=== PATIENT | male | born 1960 | race Caucasian/White ===

== ENCOUNTER → 2018-04-11 | Outpatient (CLI) | payer OTHER ==
--- NOTE | 2018-04-11 11:34 | REP ---
Clinical: Left testicular pain. Technique: Real time keller scale and color Doppler evaluation using linear high frequency transducer. Findings: The bilateral testicles and epididymi are relatively normal in contour, size, echogenicity and vascularity. There is no evidence for torsion, mass lesion or infectious/inflammatory process. Incidental right epididymal head cysts measure 3 x 2 x 3 mm and 2 x 3 x 2 mm each. No significant hydroceles are identified. Few left intratesticular calcifications are noted. Left varicocele measures 3.5 mm. No hydrocele. Right testicle measures 5.0 x 2.6 x 2.9 cm. Left testicle measures 4.6 x 2.1 x 3.3 cm. Impression: 1. No evidence for significant acute process. 2. Few left intratesticular calcifications are nonspecific. 3. Left varicocele measures 3.5 mm diameter. Electronically Signed by Lee Cedillo MD 04/11/2018 11:26 A
== END ==
LOC: M RAD 10:32
PROVIDERS: ATTEND Physician Assistant
DX: N50.812 Left testicular pain (principal)

== ENCOUNTER → 2018-09-12 | Outpatient (REF) | payer OTHER ==
[2018-09-12 13:39] LABS: BASO % 0.7 % (0.0-1.0); EOS # 0.3 10^3/uL (0.0-0.50); EOS % 4.4 % (0.0-3.0); HEMATOCRIT 45.7 % (42.0-52.0); HEMOGLOBIN 15.5 g/dl (13.5-17.5); LYMPH # 1.5 10^3/uL (1.5-4.5); MEAN CORPUSCULAR HEMOGLOBIN 30.7 pg (27.0-33.0); MEAN CORPUSCULAR HGB CONC 33.9 g/dl (32.0-36.5); MEAN CORPUSCULAR VOLUME 90.5 fl (80.0-96.0); MONO # 0.5 10^3/uL (0.0-0.8); MONO % 9.1 % (0.0-5.0); NEUTROPHILS # 3.6 10^3/uL (1.8-7.7); NEUTROPHILS % 60.6 % (36.0-66.0); PLATELET COUNT, AUTOMATED 183 10^3/uL (150-450); RED BLOOD COUNT 5.05 10^6/uL (4.30-6.10); WHITE BLOOD COUNT 5.9 10^3/uL (4.0-10.0)
[2018-09-12 13:54] LABS: ALT/SGPT 60 U/L (12-78); BILIRUBIN,TOTAL 0.9 MG/DL (0.2-1.0); BLOOD UREA NITROGEN 19 MG/DL (7-18); CARBON DIOXIDE LEVEL 24 MEQ/L (21-32); CHLORIDE LEVEL 110 MEQ/L (98-107); CREATININE FOR GFR 0.95 MG/DL (0.70-1.30); FOLATE 6.8 NG/ML (>5.4); GLOMERULAR FILTRATION RATE > 60.0 (>56); GLUCOSE, FASTING 95 MG/DL (70-100); HEMOGLOBIN A1c 5.8 %; RHEUMATOID FACTOR QUANT < 10.0 IU/ML (<15.0); SODIUM LEVEL 141 MEQ/L (136-145); TOTAL PROTEIN 7.5 GM/DL (6.4-8.2); VITAMIN B12 LEVEL 605 PG/ML (247-911)
[2018-09-12 14:13] LABS: ERYTHROCYTE SEDIMENTATION RATE 3 mm/hr (0-20)
[2018-09-13 10:33] LABS: ALBUMIN 4.63 GM/DL (3.29-5.55); ALBUMIN % 61.7 % (55.8-66.1); ALPHA-1-GLOBULIN % 3.6 % (2.9-4.9); ALPHA-1-GLOBULINS 0.27 GM/DL (0.17-0.41); ALPHA-2-GLOBULINS 0.47 GM/DL (0.42-0.99); ALPHA-2-GLOBULINS % 6.2 % (7.1-11.8); BETA-1-GLOBULINS 0.38 GM/DL (0.28-0.60); BETA-2-GLOBULINS 0.38 GM/DL (0.19-0.55); GAMMA GLOBULIN % 18.5 % (11.1-18.8); GAMMA GLOBULINS 1.39 GM/DL (0.65-1.58)
[2018-09-18 09:13] LABS: ANCA-ATYPICAL <1:20 titer (Neg:<1:20); ANTI DS-DNA AB <1:10 titer (.); ANTINUCLEAR ANTIBODIES DIRECT Negative (Negative); CERULOPLASMIN 16.3 mg/dL (16.0-31.0); COPPER PLASMA 66 ug/dL (72-166); CYTOPLASMIC NEUTROP AB ANCA-C <1:20 titer (Neg:<1:20); LEAD BLOOD ADULT 2 ug/dL (0-4); Lyme Disease IgG/IgM Antibodie <0.91 ISR (0.00-0.90); Lyme Disease IgM Ab Quantitati <0.80 index (0.00-0.79); MERCURY LEVEL None Detected ug/L (0.0-14.9); PERINUCLEAR AB ANCA-P <1:20 titer (Neg:<1:20); SJOGREN'S ANTI SS-A <0.2 AI (0.0-0.9); SJOGREN'S ANTI SS-B <0.2 AI (0.0-0.9); VITAMIN B1 LEVEL WHOLE BLOOD 134.1 nmol/L (66.5-200.0); VITAMIN B6,PYRIDOXAL PHOSPHATE 2.6 ug/L (5.3-46.7); VITAMIN E(ALPHA TOCOPHEROL) 10.3 mg/L (7.0-25.1); VITAMIN E(GAMMA TOCOPHEROL) 3.4 mg/L (0.5-5.5)
[2018-09-18 10:30] LABS: DRVV SCREEN 43.2 SEC
[2018-09-18 10:32] LABS: PTT LUPUS TYPE ANTICOAG SCREEN 1.1 (0-1.2)
== END ==
LOC: M LABNEURO 08:57
PROVIDERS: ATTEND Psychiatry & Neurology Neurology
DX: G90.09 Other idiopathic peripheral autonomic neuropathy (principal)

== ENCOUNTER → 2018-11-05 | Outpatient (CLI) | payer OTHER ==
--- NOTE | 2018-11-06 04:48 | REP ---
Clinical: Splenomegaly. Technique: Real time keller scale ultrasound examination using curved array transducer. Findings: Liver is increased in echogenicity without focal hepatic lesion identified. Pancreas is incompletely evaluated due to interposed bowel gas. The spleen is enlarged and measures 16.4 x 16.8 x 6.0 cm (splenic index equals 1653). Splenic calcifications consistent with prior granulomatous disease. The bilateral kidneys are normal in reniform shape without hydronephrosis. Right kidney measures 11.1 x 7.5 x 5.4 cm. Left kidney measures 12.2 x 5.8 x 4.4 cm. Abdominal aorta is normal and measures 1.9 cm maximal diameter. No ascites. Impression: Splenomegaly. Electronically Signed by Lee Cedillo MD 11/06/2018 04:40 A
== END ==
LOC: M RAD 08:59
PROVIDERS: ATTEND Psychiatry & Neurology Neurology
DX: R16.1 Splenomegaly, not elsewhere classified (principal)

== ENCOUNTER → 2019-01-01 | Outpatient (REF) | payer OTHER ==
[2019-01-01 18:26] LABS: BASO % 0.7 % (0.0-1.0); EOS # 0.3 10^3/uL (0.0-0.5); EOS % 5.1 % (0.0-3.0); HEMATOCRIT 49.1 % (42.0-52.0); HEMOGLOBIN 16.5 g/dl (13.5-17.5); LYMPH # 1.8 10^3/uL (1.5-5.0); LYMPH % 32.4 % (24.0-44.0); MEAN CORPUSCULAR HEMOGLOBIN 30.8 pg (27.0-33.0); MEAN CORPUSCULAR HGB CONC 33.6 g/dl (32.0-36.5); MEAN CORPUSCULAR VOLUME 91.6 fl (80.0-96.0); MONO # 0.4 10^3/uL (0.0-0.8); MONO % 7.7 % (0.0-5.0); NEUTROPHILS # 2.9 10^3/uL (1.5-8.5); NEUTROPHILS % 53.9 % (36.0-66.0); PLATELET COUNT, AUTOMATED 193 10^3/uL (150-450); RED BLOOD COUNT 5.36 10^6/uL (4.30-6.10); WHITE BLOOD COUNT 5.5 10^3/uL (4.0-10.0)
[2019-01-01 18:59] LABS: ERYTHROCYTE SEDIMENTATION RATE 3 mm/hr (0-20)
[2019-01-01 19:01] LABS: ALBUMIN 4.2 GM/DL (3.2-5.2); ALT/SGPT 86 U/L (12-78); BILIRUBIN,TOTAL 0.7 MG/DL (0.2-1.0); BLOOD UREA NITROGEN 14 MG/DL (7-18); CALCIUM LEVEL 9.2 MG/DL (8.5-10.1); CARBON DIOXIDE LEVEL 27 MEQ/L (21-32); CHLORIDE LEVEL 108 MEQ/L (98-107); CREATININE FOR GFR 0.91 MG/DL (0.70-1.30); GLOMERULAR FILTRATION RATE > 60.0 (>56); GLUCOSE, FASTING 89 MG/DL (70-100); POTASSIUM SERUM 3.9 MEQ/L (3.5-5.1); RHEUMATOID FACTOR QUANT < 10.0 IU/ML (<15.0); SODIUM LEVEL 140 MEQ/L (136-145); TOTAL PROTEIN 7.6 GM/DL (6.4-8.2)
== END ==
LOC: M LABNEURO 11:51
PROVIDERS: ATTEND Psychiatry & Neurology Neurology
DX: R51 Headache (principal)

== ENCOUNTER → 2019-03-20 | Outpatient (CLI) | payer OTHER ==
[2019-03-20 14:22] LABS: ALBUMIN 4.3 GM/DL (3.2-5.2); ALT/SGPT 107 U/L (12-78); BILIRUBIN,DIRECT 0.3 MG/DL (0.0-0.2); BILIRUBIN,TOTAL 0.8 MG/DL (0.2-1.0); IRON (FE) 102 UG/DL (65-175); PERCENT SATURATION 46.4 % (19.7-50.0); TOTAL IRON BINDING CAPACITY 220 UG/DL (250-450); TOTAL PROTEIN 7.8 GM/DL (6.4-8.2)
[2019-03-20 14:42] LABS: HEPATITIS B SURFACE ANTIGEN NEGATIVE (NEGATIVE)
[2019-03-20 15:10] LABS: HEPATITIS B CORE ANTIBODY IGM NEGATIVE (NEGATIVE); HEPATITIS C VIRUS ABY INDEX 0.2 INDEX (<0.8)
[2019-03-20 15:12] LABS: HEPATITIS A ANTIBODY IGM NEGATIVE (NEGATIVE)
[2019-03-23 00:06] LABS: ANCA-ATYPICAL <1:20 titer (Neg:<1:20); ANTI-MITOCHONDRIAL ANTIBODY <20.0 Units (0.0-20.0); ANTINUCLEAR ANTIBODIES DIRECT Negative (Negative); CERULOPLASMIN 17.5 mg/dL (16.0-31.0); CYTOPLASMIC NEUTROP AB ANCA-C <1:20 titer (Neg:<1:20); PERINUCLEAR AB ANCA-P <1:20 titer (Neg:<1:20); TISSUE TRANSGLUTAMINASE IgA <2 U/mL (0-3)
== END ==
LOC: M LAB 11:45
PROVIDERS: ATTEND Internal Medicine Gastroenterology
DX: R16.1 Splenomegaly, not elsewhere classified (principal)

== ENCOUNTER → 2019-04-01 | Outpatient (CLI) | payer OTHER ==
[~2019-04-01] MED LIST: GASTROGRAFIN SOLUTION 30ML (Q9963) As Ordered ONE; ISOVUE-370 76% 100ML VIAL (Q9967) As Ordered ONE
--- NOTE | 2019-04-01 09:59 | REP ---
Clinical: Left-sided pain. History of splenomegaly. Technique: Axial contrast enhanced images from the lung bases to the pubic symphysis using oral (per protocol) and 100 ml Isovue 370 intravenous contrast material. Findings: Mild hepatomegaly and diffuse hepatic steatosis noted. There is a subtle arterial blocks along the posterior aspect of the right hepatic lobe (image 32) which may represent small hemangioma. Liver measures 21 cm in craniocaudal length. Splenomegaly is appreciated with the spleen measuring approximately 14.6 x 15.0 x 5.5 cm without focal splenic lesion appreciated. Pancreas, gallbladder, bilateral adrenal glands and kidneys are normal. The enteric system is without obstruction or acute inflammatory process. Normal terminal ileum and appendix are identified in the right lower quadrant. Sigmoid diverticulosis noted without acute diverticulitis. This demonstrates normal bladder and age appropriate prostate/seminal vesicles. No pelvic fluid or ascites. No free air. No adenopathy. Abdominal aorta without aneurysm or dissection. Musculoskeletal structures demonstrate age-related degenerative changes including suspected chronic sacroiliitis. Impression: 1. Hepatosplenomegaly along with fatty infiltration to the liver and possible small hemangioma in the posterior right hepatic lobe. Consider ultrasound examination for follow-up. No other focal hepatic or splenic lesion identified. 2. Diverticulosis. Electronically Signed by Lee Cedillo MD 04/01/2019 09:51 A
== END ==
LOC: M RAD 07:38
PROVIDERS: ATTEND Internal Medicine Gastroenterology
DX: R11.0 Nausea (principal); R16.1 Splenomegaly, not elsewhere classified; R10.32 Left lower quadrant pain
CPT/HCPCS: 74177; Q9963; Q9967

== ENCOUNTER 2019-04-08 12:33 | Day surgery (SDC) | payer OTHER ==
[~2019-04-08] VITALS: Ht 190.5 cm; Wt 115.7 kg
[~2019-04-08 12:33] MED LIST changes: -GASTROGRAFIN SOLUTION 30ML (Q9963) As Ordered ONE; -ISOVUE-370 76% 100ML VIAL (Q9967) As Ordered ONE; +NS 1,000 ML IV ONE
[2019-04-08] MEDS ORDERED: fentaNYL 100 MCG/2 ML INJECTION (J3010) As Ordered ONE (12:51)
[2019-04-08] MEDS ORDERED: LIDOCAINE 2% INJ 100 MG/5 ML SDV (FOR ANES.) As Ordered ONE (12:52)
[2019-04-08] MEDS ORDERED: propofoL 500 MG/50 ML VIAL As Ordered ONE (12:57)
--- NOTE | 2019-04-08 14:04 | ROOR ---
Patient Name: Cr Herr Procedure Date: 04/08/2019 1:45 PM Date of : 1960 Age: 58 Room: [facility] Gender: Male Note Status: Finalized Procedure: Upper GI endoscopy Indications: Abdominal pain, Dyspepsia, Nausea Providers: Santino WEBER MD Referring MD: 1. No Referring Physician 1. No Referring Physician, Admin. Requesting Provider: Medicines: Monitored Anesthesia Care Complications: No immediate complications. Procedure: Pre-Anesthesia Assessment: - The heart rate, respiratory rate, oxygen saturations, blood pressure, adequacy of pulmonary ventilation, and response to care were monitored throughout the procedure. The Endoscope was introduced through the mouth, and advanced to the second part of duodenum. The upper GI endoscopy was accomplished without difficulty. The patient tolerated the procedure well. Findings: A single 5 mm semi-sessile polyp was found in the cardia. The polyp was removed with a cold snare. Resection and retrieval were complete. The exam of the stomach was otherwise normal. The examined esophagus was normal. The examined duodenum was normal. Impression: - A single gastric polyp. Resected and retrieved. - Stomach otherwise normal. - Normal esophagus. - Normal examined duodenum. Recommendation: - Observe patient's clinical course. - Continue present medications. Santino Weber MD Santino WEBER MD 04/08/2019 2:03:59 PM Electronically signed by Santino WEBER MD Number of Addenda: 0 Note Initiated On: 04/08/2019 1:45 PM Estimated Blood Loss: Estimated blood loss: none.
--- NOTE | 2019-04-08 14:25 | ROOR ---
Patient Name: Cr Herr Procedure Date: 04/08/2019 1:45 PM Date of : 1960 Age: 58 Room: [facility] Gender: Male Note Status: Finalized Procedure: Colonoscopy Indications: Generalized abdominal pain Providers: Santino WEBER MD Referring MD: 1. No Referring Physician 1. No Referring Physician, Admin. Requesting Provider: Medicines: Monitored Anesthesia Care Complications: No immediate complications. Procedure: Pre-Anesthesia Assessment: - The heart rate, respiratory rate, oxygen saturations, blood pressure, adequacy of pulmonary ventilation, and response to care were monitored throughout the procedure. The Colonoscope was introduced through the anus and advanced to 10 cm into the ileum. The colonoscopy was performed without difficulty. The patient tolerated the procedure well. The quality of the bowel preparation was good. Findings: The perianal and digital rectal examinations were normal. A 7 mm polyp was found in the sigmoid colon. The polyp was semi-pedunculated. The polyp was removed with a hot snare. Resection and retrieval were complete. The exam was otherwise normal throughout the examined colon. The terminal ileum appeared normal. Impression: - One 7 mm polyp in the sigmoid colon, removed with a hot snare. Resected and retrieved. - The colon is otherwise normal - The examined portion of the ileum was normal. Recommendation: - Repeat colonoscopy in 3 - 5 years for surveillance. - Telephone endoscopist for pathology results in 2 weeks. - Return to referring physician as previously scheduled. Santino Weber MD Snatino WEBER MD 04/08/2019 2:25:33 PM Electronically signed by Santino WEBER MD Number of Addenda: 0 Note Initiated On: 04/08/2019 1:45 PM Estimated Blood Loss: Estimated blood loss: none.
[2019-04-08 14:55] VITALS: BP 164/102
== END 2019-04-08 15:02 | disposition home or self-care (01) ==
LOC: M OPP 12:33
PROVIDERS: ATTEND Internal Medicine Gastroenterology
DX: D12.5 Benign neoplasm of sigmoid colon (principal); R10.84 Generalized abdominal pain; K31.7 Polyp of stomach and duodenum; R10.13 Epigastric pain; R11.0 Nausea; Z88.0 Allergy status to penicillin
CPT/HCPCS: 43251; 45385; 88305; J3010